=== PATIENT | female | born 1950 | race Two or more races ===

== ENCOUNTER 2022-03-06 21:03 | Emergency (ER) | payer MEDICAID, OTHER ==
[~2022-03-06] VITALS: Ht 154.9 cm; Wt 70.0 kg
[2022-03-06 21:46] VITALS: BP 151/76
== END 2022-03-06 21:46 | disposition left against medical advice (07) ==
LOC: ER 21:03
DX: R04.0 Epistaxis (principal); Z53.21 Procedure and treatment not carried out due to patient leaving prior to being seen by health care provider
CPT/HCPCS: 82962